=== PATIENT | male | born 1945 | race Caucasian/White ===

== ENCOUNTER 2017-04-10 19:02 | Emergency (ER) | payer OTHER ==
[~2017-04-10 19:02] MED LIST: ASPIR 8181 MG PO; ASPIRIN EC81 MG PO; BUSPAR 5MG TABLE5 MG PO; CITALOPRAM HBR10 MG PO; CITALOPRAM HBR20 MG PO; COZAAR100 MG PO; COZAAR50 MG PO; EFFEXOR XR 75 M75 MG PO; ELIQUIS5 MG PO; FLOMAX 0.4 MG0.4 MG PO; GLUCOPHAGE500 MG PO; IMDUR ER TAB 3030 MG PO; LANTUS SOL100 UNIT/1 SQ; LANTUS100 UNIT/1 SC; LASIX20 MG PO; LASIX40 MG PO; LIPITOR TAB 2020 MG PO; LOPRESSOR 25 MG25 MG PO; LOPRESSOR 50 MG50 MG PO; LORTAB 5-325 M1 EACH PO; METOPROLOL TART50 MG PO; MIRALAX PACK 171 PKT GT; NORCO 5-325 TA1 EACH PO; NOVOLOG 10100 UNITS/ INJ; NOVOLOG 10100 UNITS/ SQ; PLAVIX 75 MG TA75 MG PO; PROTONIX40 MG PO; SENOKOT-S TABL1 EACH PO; TYLENOL 325MG325 MG PO
[2017-04-10 19:57] LABS: HEMOGLOBIN 14.4 gm/dl (14.0-17.5); RED BLOOD COUNT 4.83 M/UL (4.20-5.50); WHITE BLOOD COUNT 3.9 K/UL (4.5-11.0)
[2017-04-10 20:19] LABS: BUN/CREATININE RATIO 30 (0-10)
[2017-06-12] MEDS ORDERED: RISPERDAL0.5 MG PO (17:03)
[2017-06-12] MEDS ORDERED: ARICEPT5 MG PO (17:04)
[2017-06-12] MEDS ORDERED: BUSPAR 5MG TABLE5 MG PO (17:05)
[2017-06-12] MEDS ORDERED: ZEBETA 5 MG TAB5 MG PO (17:06)
[2017-06-12] MEDS ORDERED: ELIQUIS5 MG PO (17:07)
[2017-06-12] MEDS ORDERED: HYDROXYZINE HCL25 MG PO (17:09)
== END 2017-04-10 23:11 | disposition home or self-care (01) ==
LOC: ER1 19:02
PROVIDERS: Family Medicine
DX: F03.90 Unspecified dementia, unspecified severity, without behavioral disturbance, psychotic disturbance, mood disturbance, and anxiety (principal); E11.9 Type 2 diabetes mellitus without complications; Z79.01 Long term (current) use of anticoagulants
CPT/HCPCS: 36415; 71010; 80053; 81001; 85025; 87086; 99284; J7030